=== PATIENT | male | born 1960 | race Caucasian/White ===

== ENCOUNTER 2017-01-11 23:39 | Emergency (ER) | payer SELFPAY ==
[~2017-01-11] VITALS: Ht 182.9 cm; Wt 97.5 kg
[2017-01-11] MEDS ORDERED: METF1000 PO (23:47)
[2017-01-11] MEDS ORDERED: AMLO-321 PO (23:47)
[2017-01-11] MEDS ORDERED: PARO40TA3 PO (23:47)
[2017-01-11] MEDS ORDERED: OXYC10TA7 PO (23:47)
[2017-01-11] MEDS ORDERED: BISO1TAB6 PO (23:47)
[2017-01-11] MEDS ORDERED: LEVO25TA5 PO (23:47)
[2017-01-11 23:49] LABS: BASOPHILS # (AUTO) 0.1 10^3/uL (0.0-0.1); BASOPHILS % (AUTO) 1 % (0-10); EOSINOPHILS # (AUTO) 0.3 10^3/uL (0.0-0.3); EOSINOPHILS % (AUTO) 2 % (0-10); LYMPHOCYTES # (AUTO) 3.4 X 10^3 (1.0-4.0); LYMPHOCYTES % (AUTO) 27 % (12-44); MEAN CORPUSCULAR HEMOGLOBIN 29 PG (25-34); MEAN CORPUSCULAR HGB CONC 34 G/DL (32-36); MEAN CORPUSCULAR VOLUME 83 FL (80-99); MEAN PLATELET VOLUME 9.2 FL (7.4-10.4); MONOCYTES # (AUTO) 1.1 X 10^3 (0.0-1.0); MONOCYTES % (AUTO) 9 % (0-12); NEUTROPHILS # (AUTO) 7.9 X 10^3 (1.8-7.8); NEUTROPHILS % (AUTO) 62 % (42-75); PLATELET COUNT 251 10^3/uL (130-400); RED BLOOD COUNT 5.29 10^6/uL (4.35-5.85); RED CELL DISTRIBUTION WIDTH 13.9 % (10.0-14.5); WHITE BLOOD COUNT 12.8 10^3/uL (4.3-11.0)
--- NOTE | 2017-01-11 23:59 | ED GI ---
General Chief Complaint: Abdominal/GI Problems Stated Complaint: N/V Source of Information: Patient, EMS History of Present Illness Time Seen By Provider: 23:45 Initial Comments PT ARRIVES VIA EMS FROM HOME C/O NAUSEA AND LEFT SIDED ABDOMINAL PAIN SINCE Friday01/06/17 TODAY AROUND NOON, BEGAN VOMITING--HAS VOMITED X 5, AND CAN'T KEEP WATER DOWN NO DIARRHEA--HAD NORMAL BM LAST PM AROUND 1999. NO BLACK/BLOODY/TARRY STOOLS HAS HAD SUBJECTIVE FEVER AND SWEATS NO KNOWN SICK CONTACTS OR SUSPICIOUS FOODS HAS ZOFRAN AT HOME, BUT IT DID NOT HELP-( TAKES PRN, OXYCODONE SOMETIMES CAUSES NAUSEA ) EMS GAVE ZOFRAN IV AND NAUSEA AND ABDOMINAL PAIN RESOLVED PCP: DR. MCKEON Allergies and Home Medications Allergies Coded Allergies: No Known Drug Allergies (Unverified , 01/11/17) Home Medications Amlodipine/Atorvastatin 1 Each Tablet, 1 EACH PO HS, (Reported) Bisoprolol Fumarate/Hctz 1 Each Tablet, 1 EACH PO DAILY, (Reported) Levothyroxine Sodium 25 Mcg Tablet, 25 MCG PO UD, (Reported) Metformin HCl 1,000 Mg Tablet, 1,000 MG PO BID, (Reported) Oxycodone HCl 10 Mg Tablet, 10 MG PO PRN, (Reported) Paroxetine HCl 40 Mg Tablet, 40 MG PO BID, (Reported) Review of Systems Constitutional: see HPI, diaphoresis, fever EENTM: No Symptoms Reported Respiratory: No Symptoms Reported Cardiovascular: No Symptoms Reported Gastrointestinal: See HPI, Abdominal Pain, Denies Constipated, Denies Diarrhea , Nausea, Poor Appetite, Poor Fluid Intake, Vomiting Genitourinary: No Symptoms Reported Musculoskeletal: no symptoms reported Skin: no symptoms reported Psychiatric/Neurological: No Symptoms Reported Endocrine: No Symptoms Reported Hematologic/Lymphatic: No Symptoms Reported Past [id number] Hx Patient Social History Alcohol Use: Denies Use Recreational Drug Use: No Smoking Status: Never a Smoker 2nd Hand Smoke Exposure: No Recent Hopitalizations: No Immunizations Up To Date Tetanus Booster (TDap): Unknown Seasonal Allergies Seasonal Allergies: No Surgeries HX Surgeries: Yes (EGD/COLONOSCOPY AND CAPSULE ENDOSCOPY) Surgeries: Gallbladder Respiratory Hx Respiratory Disorders: No Cardiovascular Hx Cardiac Disorders: Yes Cardiac Disorders: Hypertension Neurological Hx Neurological Disorders: Yes (SUSPECTED NEUROPATHY IN FEET) Neurological Disorders: Neuropathy Genitourinary Hx Genitourinary Disorders: No Gastrointestinal Hx Gastrointestinal Disorders: Yes (S/P ODESSA. ) Gastrointestinal Disorders: Diverticulosis, Gall Bladder Disease Musculoskeletal Hx Musculoskeletal Disorders: No Endocrine Hx Endocrine Disorders: Yes Endocrine Disorders: Hypothyroidsim, Diabetes, Non-Insulin dep HEENT HX ENT Disorders: Yes (CHRONIC JAW AND LIP PAIN FOLLOWING TOOTH EXTRACTIONS AND PLACEMENT OF POSTS FOR PERMANENT DENTAL IMPLANTS--ON OXYCODONE CONTINUOUSLY. ) Cancer Hx Cancer: No Psychosocial Hx Psychiatric Problems: Yes Behavioral Health Disorders: Anxiety, Depression Integumentary HX Skin/Integumentary Disorder: No Blood Transfusions Hx Blood Disorders: No Physical Exam Vital Signs VS - Last 72 Hours, by Label 01/11/17 23:47 Temp 97.8 Pulse 68 Resp 18 B/P (MAP) 171/109 Pulse Ox 98 O2 Delivery Room Air Capillary Refill : General Appearance: WD/WN, no apparent distress, other (CONSTANT FOOT MOVEMENTS AND MOUTH MOVEMENTS, AND FIDGETING WITH HANDS) HEENT: PERRL/EOMI, other (EDENTULOUS) Neck: normal inspection Respiratory: normal breath sounds, no respiratory distress, no accessory muscle use Cardiovascular: normal peripheral pulses, regular rate, rhythm, no edema, no JVD, no murmur Gastrointestinal: normal bowel sounds, non tender, soft, no organomegaly, no pulsatile mass Extremities: normal inspection, no pedal edema Back: no CVA tenderness Neurologic/Psychiatric: biomedical manager II-XII nml as tested, no motor/sensory deficits, alert, normal mood/affect, oriented x 3 Skin: normal color, diaphoresis Progress/Results/Core Measures Results/Orders Lab Results Laboratory Tests Test 01/11/17 23:43 Range/Units White Blood Count 12.8 H 4.3-11.0 10^3/uL Red Blood Count 5.29 4.35-5.85 10^6/uL Hemoglobin 15.1 13.3-17.7 G/DL Hematocrit 44 40-54 % Mean Corpuscular Volume 83 80-99 FL Mean Corpuscular Hemoglobin 29 25-34 PG Mean Corpuscular Hemoglobin Concent 34 32-36 G/DL Red Cell Distribution Width 13.9 10.0-14.5 % Platelet Count 251 130-400 10^3/uL Mean Platelet Volume 9.2 7.4-10.4 FL Neutrophils (%) (Auto) 62 42-75 % Lymphocytes (%) (Auto) 27 12-44 % Monocytes (%) (Auto) 9 0-12 % Eosinophils (%) (Auto) 2 0-10 % Basophils (%) (Auto) 1 0-10 % Neutrophils # (Auto) 7.9 H 1.8-7.8 X 10^3 Lymphocytes # (Auto) 3.4 1.0-4.0 X 10^3 Monocytes # (Auto) 1.1 H 0.0-1.0 X 10^3 Eosinophils # (Auto) 0.3 0.0-0.3 10^3/uL Basophils # (Auto) 0.1 0.0-0.1 10^3/uL Sodium Level 144 135-145 MMOL/L Potassium Level 3.7 3.6-5.0 MMOL/L Chloride Level 102 98-107 MMOL/L Carbon Dioxide Level 30 21-32 MMOL/L Anion Gap 12 5-14 MMOL/L Blood Urea Nitrogen 13 7-18 MG/DL Creatinine 1.18 0.60-1.30 MG/DL Estimat Glomerular Filtration Rate > 60 BUN/Creatinine Ratio 11 Glucose Level 114 H 70-105 MG/DL Calcium Level 10.0 8.5-10.1 MG/DL Total Bilirubin 1.1 H 0.1-1.0 MG/DL Aspartate Amino Transf (AST/SGOT) 38 H 5-34 U/L Alanine Aminotransferase (ALT/SGPT) 40 0-55 U/L Alkaline Phosphatase 73 40-136 U/L Total Protein 7.4 6.4-8.2 G/DL Albumin 4.4 3.2-4.5 G/DL Amylase Level 60 25-125 U/L Lipase 34 8-78 U/L My Orders Orders - PHIL DUNN DO Saline Lock/Iv-Start (01/11/17 23:44) Monitor-Rhythm Ecg Trace Only (01/11/17 23:44) Amylase (01/11/17 23:44) Cbc With Automated Diff (01/11/17:44) Comprehensive Metabolic Panel (01/11/17 23:44) Lipase (01/11/17 23:44) Ua Culture If Indicated (01/11/17 23:44) Ct Abdomen/Pelvis Wo (01/11/17 23:44) Acute Abd Series (01/11/17 23:44) Vital Signs/I&O Vital Sign - Last 12Hours 5/13/17 23:47 Temp 97.8 Pulse 68 Resp 18 B/P (MAP) 171/109 Pulse Ox 98 O2 Delivery Room Air Progress Note : Progress Note NO SYMPTOMS DURING ER STAY PT STATES HE VOIDED JUST PRIOR TO ARRIVAL, AND ONLY URINATES 2-3 TIMES A DAY AND STATES HE CANNOT GIVE A URINE SAMPLE Diagnostic Imaging Comments ACUTE ABDOMEN XRAYS--NO ACUTE PROCESS, PENDING RADIOLOGIST REVIEW CT ABDOMEN/PELVIS--NON-SPECIFIC BOWEL GAS, APPENDIX UPPER LIMITS OF NORMAL WITHOUT EVIDENCE OF INFLAMMATION. PER [facility] VIA FAX @ [phone] Reviewed: Reviewed by Me Departure Impression Impression: Primary Impression: Gastroenteritis Disposition: HOME, SELF-CARE Condition: Improved Departure-Patient Inst. Referrals: DAMIAN MCKEON MD Patient Instructions: [id number] Add. Discharge Instructions: CLEAR LIQUIDS--WATER, BROTH, JELLO, GATORADE TOMORROW IF YOU ARE BETTER, ADD BRATS DIET TO CLEAR LIQUIDS--BANANAS, RICE, APPLESAUCE, TOAST, SALTINES FOLLOW UP WITH DR. MCKEON ON FRIDAY IF NO BETTER RETURN TO ER IF WORSE TAKE YOUR HOME ZOFRAN NEEDED FOR NAUSEA All discharge instructions reviewed with patient and/or family. Voiced understanding. Scripts Hyoscyamine Sulfate (Levsin-Sl) 0.125 Mg Tab.subl 1-2 TAB SL Q4H for Abdominal Pain, #10 TAB Prov: PHIL DUNN DO 01/12/17 Lactobacillus Acidophilus (Acidophilus) 1 Each Capsule 2 EACH PO QID, #80 CAP Prov: PHIL DUNN DO 01/12/17 PHIL DUNN DO January 11, 2017 23:59
[2017-01-12 00:09] LABS: ALANINE AMINOTRANSFERASE 40 U/L (0-55); ALBUMIN 4.4 G/DL (3.2-4.5); AMYLASE 60 U/L (25-125); ANION GAP 12 MMOL/L (5-14); ASPARTATE AMINO TRANSFERASE 38 U/L (5-34); BILIRUBIN,TOTAL 1.1 MG/DL (0.1-1.0); BLOOD UREA NITROGEN 13 MG/DL (7-18); BUN/CREATININE RATIO 11; CARBON DIOXIDE 30 MMOL/L (21-32); CHLORIDE 102 MMOL/L (98-107); CREATININE SERUM 1.18 MG/DL (0.60-1.30); GFR ESTIMATED > 60; GLUCOSE 114 MG/DL (70-105); LIPASE 34 U/L (8-78); POTASSIUM 3.7 MMOL/L (3.6-5.0); SODIUM 144 MMOL/L (135-145); TOTAL PROTEIN 7.4 G/DL (6.4-8.2)
[2017-01-12] MEDS ORDERED: HYOS0.1283 SL (00:49)
[2017-01-12] MEDS ORDERED: LACT1CAP8 PO (00:49)
[2017-01-12 00:57] VITALS: BP 154/92
--- NOTE | 2017-01-12 07:18 | Diagnostic Imaging Report ---
PROCEDURE: CT abdomen and pelvis without contrast. TECHNIQUE: Multiple contiguous axial images were obtained through the abdomen and pelvis without the use of intravenous contrast. INDICATION: Abdominal pain, vomiting COMPARISON: None available FINDINGS: The visualized lung bases are clear. Small hiatal hernia. Cholecystectomy. Diffusely decreased density of the liver is identified. Pneumobilia. The unenhanced spleen and adrenal glands are unremarkable. The pancreas is unremarkable. 0.9 cm hypodensity is seen within the inferior pole of the right kidney. Otherwise, the right kidney and ureter are unremarkable. A 1 mm nonobstructing left renal calculus. Otherwise, the left kidney and left ureter are unremarkable. Minimal vascular calcifications without aneurysmal dilatation of the abdominal aorta. The urinary bladder is unremarkable. Bilateral fat-containing inguinal hernias. Mild colonic diverticulosis without CT evidence of diverticulitis. Significant amount of stool is noted throughout the colon. The tip of the appendix is slightly prominent measuring up to 7 mm. No significant fat stranding about the appendix. Gas and fluid is seen throughout the small bowel without bowel obstruction. Duodenal diverticulum arising from the fourth portion of the duodenum without adjacent inflammatory stranding. No significant adenopathy, free air, or free fluid within the abdomen or pelvis. Scattered osseous degenerative changes without acute osseous abnormality. IMPRESSION: Pneumobilia. This most likely relates to patient being status post cholecystectomy with prior sphincterotomy. Recommend clinical correlation. The tip of the appendix is mildly dilated measuring 7 mm, though there is no periappendiceal inflammatory stranding. Findings are favored to relate to a normal anatomic variant as opposed to acute appendicitis. However, recommend clinical correlation for right lower quadrant pain and tenderness. Punctate nonobstructing left renal calculus. Small hypodensity within the right kidney, statistically likely relates to a cyst. Moderate amount of stool throughout the colon. Small hiatal hernia. Fatty infiltration of the liver. Additional findings as described above. Agree with preliminary interpretation. Dictated by: Dictated on workstation # [id number]
--- NOTE | 2017-01-12 07:51 | Diagnostic Imaging Report ---
INDICATION: Abdominal pain and vomiting. COMPARISON: CT from same day. TECHNIQUE: Four radiographs of the chest and abdomen dated January 12, 2017. FINDINGS: The cardiac silhouette is within normal limits in size. No significant pulmonary vascular congestion. The lungs are clear. No pleural effusion or pneumothorax. No acute osseous abnormality within chest. Surgical clips are present in the upper quadrant of the abdomen. Gas and stool is seen throughout the colon, including extending into the lower pelvis. No dilated loops of small bowel. No differential air-fluid levels. No evidence of free air. Linear gas lucencies are seen overlying the right upper quadrant of the abdomen. Mild apex left curvature of the lumbar spine. Scattered osseous degenerative changes. No acute osseous abnormality. No suspicious calcifications overlying the renal shadows. IMPRESSION: Linear gas lucencies overlying the right upper quadrant, felt to relate to pneumobilia noted on recent CT examination. This likely relates to underlying sphincterotomy. Recommend clinical correlation with surgical history. Additional findings, as above. No evidence of bowel obstruction or free air. Dictated by: Dictated on workstation # [id number]
== END 2017-01-12 00:52 | disposition home or self-care (01) ==
LOC: EDUNIT# 23:39 → ER 23:41
DX: K52.9 Noninfective gastroenteritis and colitis, unspecified (principal); E11.9 Type 2 diabetes mellitus without complications; Z79.84 Long term (current) use of oral hypoglycemic drugs
CPT/HCPCS: 36415; 74022; 74176; 80053; 82150; 83690; 85025; 93041